=== PATIENT | male | born 1990 | race Caucasian/White ===

== ENCOUNTER 2019-10-08 11:55 | Emergency (ER) | payer OTHER ==
[~2019-10-08] VITALS: Ht 172.7 cm; Wt 86.2 kg
[2019-10-08 12:36] LABS: INFLUENZA A ANTIGEN Negative (Negative); INFLUENZA B ANTIGEN Negative (Negative)
[2019-10-08 13:24] LABS: ABSOLUTE BASOPHILS 0.1 thou/uL (0.0-0.2); ABSOLUTE EOSINOPHILS 0.1 thou/uL (0.0-0.7); ABSOLUTE LYMPHOCYTES 2.7 thou/uL (0.8-5.3); ABSOLUTE MONOCYTES 0.7 thou/uL (0.0-1.2); ABSOLUTE NEUTROPHILS 3.5 thou/uL (1.6-8.1); BASOPHILS 1.1 %; EOSINOPHILS 1.2 %; HEMATOCRIT 40.8 % (42.0-52.0); HEMOGLOBIN 13.8 gm/dL (14.0-18.0); LYMPHOCYTES 38.1 %; MCH 29.9 pg (26.0-34.0); MCHC 33.8 g/dL (28.0-37.0); MCV 88.5 fL (80.0-100.0); MONOCYTES 9.9 %; MPV 7.2 fl. (7.2-11.1); NUCLEATED RBCS 0 /100WBC; PLATELET COUNT* 309 thou/uL (150-400); POLYS 49.7 %; RBC 4.61 mil/uL (4.50-6.00); RDW-CV 12.5 % (10.5-14.5)
[2019-10-08 13:31] LABS: CREATININE 1.1 mg/dL (0.6-1.3)
[2019-10-08 13:35] LABS: TOTAL BILIRUBIN 0.3 mg/dL (<0.1-1.0); TOTAL PROTEIN 7.9 g/dL (6.4-8.2)
[2019-10-08 13:50] VITALS: BP 122/79
== END 2019-10-08 13:52 | disposition home or self-care (01) ==
LOC: M.ERS 11:55
PROVIDERS: Family Medicine
DX: B34.9 Viral infection, unspecified (principal)